=== PATIENT | female | born 1980 | race Caucasian/White ===

== ENCOUNTER 2017-02-24 09:26 | Emergency (ER) | payer OTHER ==
--- NOTE | 2017-02-24 10:53 | DIAGNOSTIC IMAGING REPORT ---
PROCEDURE: CT HEAD WITHOUT CONTRAST INDICATION: HEADACHE FAM HX OF BRAIN TUMOR TECHNIQUE: Axial CT images were acquired through the head. Coronal and sagittal reformations were created. COMPARISON: None. FINDINGS: No intracranial hemorrhage or extraaxial fluid collections. Ventricles are normal in size, shape and position. There is no mass, mass effect or midline shift. The lara-white matter differentiation is normal. There is no edema. The calvarium is intact. The paranasal sinuses and mastoid air cells are normally aerated. The extracranial soft tissues and orbits are normal. IMPRESSION: 1. No CT evidence of acute intracranial process. 2. Findings discussed with Dr. Kuo at [address] scans at this facility use dose modulation, iterative reconstruction, and/or weight-based dosing when appropriate to reduce radiation dose to as low as reasonably achievable.
--- NOTE | 2017-02-24 12:04 | ED CLINICAL REPORT ---
Clinical Report - Physicians/Mid Levels [facility] [address] [place] [address] 02/24/2017 9:31 Patient: SONIA HARRIS I Time Seen: 0945. Arrived- By private vehicle. Historian- patient. HISTORY OF PRESENT ILLNESS Chief Complaint: HEADACHE. Is still present but is improving. This started today 0600. It was gradual in onset and has been constant but is not gone now. Onset during gardening. It is described as sharp. Quality described as unlike previous headaches. Located in the frontal region. No neck pain. Not located in the facial region. At its maximum, severity described as severe. When seen in the E.D., severity described as mild. The patient has had nausea. No photophobia, numbness, weakness or vomiting. (maximum intensity of headache occurred approximately 1-1/2 hours after onset.). No recent travel. Similar symptoms previously: None. Recent medical care: Not recently seen/assessed. REVIEW OF SYSTEMS No fever or skin rash. All systems otherwise negative, except as recorded above. PAST HISTORY See nurses notes. Medications: None. Allergies: No Known Drug Allergy. SOCIAL HISTORY Never smoker. No alcohol use or drug use. Is a local resident. FAMILY HISTORY History of migraine headaches (sister). sister also with hx of what patient describes as a pituitary tumor. ADDITIONAL NOTES The nursing notes have been reviewed. PHYSICAL EXAM Vital Signs: 02/24/2017 09:40 BP: 135/54. HR: 108. RR: 18. O2 saturation: 99%. Temp: 97.7 F. Pain level now: 6/10. Oxygen saturation normal. Appearance: Alert. No acute distress. Eyes: Pupils equal, round and reactive to light. Eyes normal inspection. (no papilledema. Normal appearing retinal vasculature.). ENT: Ears normal. Nose normal. Pharynx normal. Neck: Normal inspection. Neck supple. No meningeal signs. CVS: Normal heart rate and rhythm. Heart sounds normal. Pulses normal. Respiratory: No respiratory distress. Breath sounds normal. Abdomen: Soft and nontender. No organomegaly. Skin: Skin warm and dry. Normal skin color. No rash. Normal skin turgor. Extremities: Extremities exhibit normal ROM. No lower extremity edema. Neuro: Oriented X 3. Alert. Mood/affect normal. Speech normal. No dysphasia or dysarthria. Cranial nerves normal (as tested). No cerebellar findings. No abnormal finger-nose test. No motor deficit. No sensory deficit. No sensory deficit. Reflexes normal. LABS, X-RAYS, AND EKG CT Head: (PROCEDURE: CT HEAD WITHOUT CONTRAST INDICATION: HEADACHE FAM HX OF BRAIN TUMOR TECHNIQUE: Axial CT images were acquired through the head. Coronal and sagittal reformations were created. COMPARISON: None. FINDINGS: No intracranial hemorrhage or extraaxial fluid collections. Ventricles are normal in size, shape and position. There is no mass, mass effect or midline shift. The lara-white matter differentiation is normal. There is no edema. The calvarium is intact. The paranasal sinuses and mastoid air cells are normally aerated. The extracranial soft tissues and orbits are normal. IMPRESSION: 1. No CT evidence of acute intracranial process.). The study was independently viewed by me and interpreted by the radiologist. The study was discussed with the radiologist (via phone and pacs). PROGRESS AND PROCEDURES Course of Care: The patient is a 36-year-old female no pertinent past medical history presenting for evaluation of headache. Patient with family history of pituitary adenoma. Patient states that her sister was diagnosed with a pituitary adenoma at the age of 31. Patient's symptoms are not consistent with a subarachnoid hemorrhage. Patient is at low risk of subarachnoid hemorrhage. Patient's pretest probability is low. The patient will be evaluated with CT scan of the head because of the patient's family history of pituitary adenoma. With a normal CT scan also within 6 hours of patient's onset of headache, patient would be at further lower her risk ofhaving a subarachnoid hemorrhage and would be at extremely low risk for having one at this time. At this time there is no concern for increased intracranial pressure, meningitis, or mass effect. the patient's workup was remarkable for the findings above. Patient's symptoms had resolved prior to discharge from the emergency department. Patient is updated on the results of her workup here in emergency department including diagnosis, home care, follow-up, and return precautions. All questions have been answered. The patient expressed understanding of these instructions and was agreeable to them. Disposition: Discharged. Condition: good. CLINICAL IMPRESSION 02/24/2017 11:20 BP: 125/72. HR: 48. RR: 16. O2 saturation: 100%. Pain level now: 09/11. Moderate nausea. Acute headache (frontal). Blood pressure normal. Oxygen saturation normal. INSTRUCTIONS Warnings: GENERAL WARNINGS: Return or contact your physician immediately if your condition worsens or changes unexpectedly, if not improving as expected, or if other problems arise. SPECIFICALLY, return if you develop fever, vomiting, numbness, weakness, difficulty thinking, visual disturbances, fainting or extreme fatigue. Your Current Medications: CONTINUE TAKING THE FOLLOWING MEDICATIONS: None*. Prescription Medications: Zofran (orally disintegrating tablets) 4 mg: take 1 orally every 8 hours as needed for nausea and vomiting. Dispense ten (10). No refill. Substitution is permissible. Follow-up: Return to the emergency department as needed. Follow up with your doctor in three days. Reason for referral: recheck today's concerns. Summary of care provided to patient via paper. Screening today revealed the patient's blood pressure to be in the normal range. The patient should follow up with a primary care provider for blood pressure management. Understanding of the discharge instructions verbalized by patient. (Electronically signed by Germain Kuo Dr. 02/24/2017 12:37)
--- NOTE | 2017-02-24 12:04 | ED NURSING NOTES ---
Clinical Report - Nurses [facility] [address] [place] [address] 02/24/2017 9:31 Patient: SONIA HARRIS I TRIAGE Triage time 0940. Chief Complaint: HEADACHE and BLURRED VISION and DIZZINESS (nausea, headache pain was 10/10 at first). Alert. SEPSIS SCREEN: Sepsis Screen. Negative (no infection suspected/documented). --09:47 Peggy Michelle R.N. 09:40 02/24/17. BP: 135/54. HR: 108. RR: 18. O2 saturation: 99%. Temp: 97.7 F. Pain level now: 610. --09:47 Peggy Michelle R.N. Weight: 53.5 kg stated. Height/Length: 62 inches Per Patient. BMI: 21.6. --09:45 Peggy Michelle R.N. Medications None. --09:43 Peggy Michelle R.N. Allergies No Known Drug Allergy. --09:43 Peggy Michelle R.N. History Arrived by private vehicle. Historian: patient. Accompanied by family. Primary physician (Owen). This started today at 0630. PAST MEDICAL HX: Denies current . SOCIAL HX: Former smoker, end date 2006. Occasional alcohol use. No drug use. The patient was not exposed to MRSA. ABUSE ASSESSMENT: Abuse assessment: ("YES") The patient was asked "Do you feel safe in your home?". --09:47 Peggy Michelle R.N. ADDITIONAL SURGERIES: Lasik. Tubal Ligation. --09:45 Peggy Michelle R.N. Interventions ID band on patient. To room. --09:47 Peggy Michelle R.N. PHYSICAL ASSESSMENT 09:47 02/24/17. GENERAL / NEURO / PSYCH: Alert. Oriented X 4. Speech within normal limits. --09:47 Peggy Michelle R.N. NURSING PROGRESS NOTES 09:47 06/25/17. Patient identifiers checked. Call light placed in reach. Bed placed in lowest position. Patient ready for evaluation- chart flagged. --09:47 Peggy Michelle R.N. 10:30. Care transferred and report given (to JOSEPH Lynn). --10:36 Peggy Michelle R.N. 10:20 02/24/2017 Site #1 started via IV in the right antecubital space with an 20g angiocath, with aseptic technique and good blood return; one attempt. Blood drawn: rainbow set. Labeled in the presence of the patient and sent to the lab. --10:49 Leah Mason R.N. 10:35 02/24/2017 Started bag #1 1000 mL IV Fluids IV NS (Saline); at 1000 mL/hr over 1 hour(s) via site #1 via IV pump. --10:50 Leah Mason R.N. 10:42 02/24/2017 PHENERGAN (Promethazine HCl) IVP 25 mg given over 1 minute(s) via site #1. IV patency established. IV site checked: no pain, redness, or swelling. IV flushed thoroughly pre- and post-medication administration. IVP given by RN. --10:50 Leah Mason R.N. 10:43 02/24/2017 Benadryl (DiphenhydrAMINE HCl) IVP 25 mg given over 1 minute(s) via site #1. IV patency established. IV site checked: no pain, redness, or swelling. IV flushed thoroughly pre- and post-medication administration. IVP given by RN. --10:51 Leah Mason R.N. 10:44 02/24/2017 Toradol IVP 30 mg given over 1 minute(s) via site #1. IV patency established. IV site checked: no pain, redness, or swelling. IV flushed thoroughly pre- and post-medication administration. IVP given by RN. --10:51 Leah Mason R.N. 10:46 02/24/2017 Decadron IVP 10 mg given over 2 minute(s) via site #1. IV patency established. IV site checked: no pain, redness, or swelling. IV flushed thoroughly pre- and post-medication administration. IVP given by RN. --10:51 Leah Masno R.N. late entry -10:20 First contact with pt. IV started and bloods to lab. --10:52 Leah Mason R.N. 10:26. Patient transported to [place] by stretcher with tech. --10:52 Leah Mason R.N. 10:35. Patient returned from CT by stretcher with tech. --10:53 Leah Mason R.N. 10:40 02/24/17. BP: 116/74. HR: 79. RR: 18. O2 saturation: 100%. Temp: deferred. Pain level now: 12/10. --10:53 Leah Mason R.N. 11:20 02/24/17. BP: 125/72. HR: 48. RR: 16. O2 saturation: 100%. Temp: deferred. Pain level now: 09/11. --11:24 Leah Mason R.N. 11:54 02/24/2017 IV Fluids IV NS Discontinued: bag #1 infused. Total amount infused: 1000 mL. IV patency established. IV site checked: no pain, redness, or swelling. IV flushed thoroughly. --12:04 Kirstin Prieto R.N. 12:00 02/24/2017 Site #1 removed upon discharge. Bandaid applied. --12:17 Leah Mason R.N. 12:00 pt denies pain or nausea. sleeping when not disturbed. --12:18 Leah Mason R.N. DISPOSITION / DISCHARGE 12:10. Condition at departure: improved and stable. No learning barriers present. Discharge instructions provided and reviewed with the patient and spouse. Reviewed medication(s) (zofran). Treatments reviewed (fluids, rest). Patient and spouse verbalized understanding. Written instructions provided in [employer]. The patient was discharged home and accompanied by spouse. She left the Emergency Department ambulatory and via private vehicle. Spouse driving. --12:16 Leah Mason R.N. 12:10 02/24/17. BP: 105/64. HR: 54. RR: 16. O2 saturation: 96%. Temp: deferred. Pain level now: 0/10. --12:16 Leah Mason R.N. Locked/Released at 02/24/2017 12:19 by Leah Mason R.N.
--- NOTE | 2017-02-24 12:05 | ED ORDER SUMMARY ---
..... Patient: SONIA HARRIS I OrderSheet [facility] VisitID: [id number] [address] [place] [address] 36y, F Registration Date/Time: 02/24/2017 ORDER SHEET Weight: 53.5 kg (stated) Allergies: No Known Drug Allergy GENERAL ORDERS: CT Head wo Cont Urgent (10:02/24/2017 Suzan Gomes) (Ack 10:07 Kelechi) (10:52 DDean R.N.) Pulse oximeter (10:02/24/2017 Suzan Gomes) (10:52 DDean R.N.) MEDICATION ORDERS: Phenergan IV 25 mg (HIGH ALERT MEDICATION, NOW) (10:02/24/2017 Suzan Gomes) (10:50 DDean R.N.) IV FLUIDS: IV NS : initial bolus 1000 mL (1000 mL/hr), then none - for X1 (NOW) (10:02/24/2017 Suzan Gomes) (10:50 DDean R.N.) Benadryl IV 25 mg (NOW) (10:02/24/2017 Suzan Gomes) (10:51 DDean R.N.) Toradol IV 30 mg (NOW) (10:02/24/2017 Suzan Gomes) (10:51 DDean R.N.) Decadron IV 10 mg (NOW) (10:02/24/2017 Suzan Gomes) (10:51 DDean R.N.) ORDER SHEET NOTES: [Electronically signed by Leah Mason R.N. (12:19 02/24/2017)] [Electronically signed by Germain Kuo Dr. (12:37 02/24/2017)] [Electronically locked/signed by Leah Mason R.N. (12:19 02/24/2017)]
--- NOTE | 2017-02-24 12:05 | ED ORDER SUMMARY ---
..... Patient: SONIA HARRIS I OrderSheet [facility] VisitID: [id number] [address] [place] [address] 36y, F Registration Date/Time: 02/24/2017 ORDER SHEET Weight: 53.5 kg (stated) Allergies: No Known Drug Allergy GENERAL ORDERS: CT Head wo Cont Urgent (10:02/24/2017 Suzan Gomes) (Ack 10:07 Kelechi) (10:52 DDean R.N.) Pulse oximeter (10:02/24/2017 Suzan Gomes) (10:52 DDean R.N.) MEDICATION ORDERS: Phenergan IV 25 mg (HIGH ALERT MEDICATION, NOW) (10:02/24/2017 Suzan Gomes) (10:50 DDean R.N.) IV FLUIDS: IV NS : initial bolus 1000 mL (1000 mL/hr), then none - for X1 (NOW) (10:02/24/2017 Suzan Gomes) (10:50 DDean R.N.) Benadryl IV 25 mg (NOW) (10:02/24/2017 Suzan Gomes) (10:51 DDean R.N.) Toradol IV 30 mg (NOW) (10:02/24/2017 Suzan Gomes) (10:51 DDean R.N.) Decadron IV 10 mg (NOW) (10:02/24/2017 Suzan Gomes) (10:51 DDean R.N.) ORDER SHEET NOTES: [Electronically signed by Leah Mason R.N. (12:19 02/24/2017)] [Electronically signed by Germain Kuo Dr. (12:37 02/24/2017)] [Electronically locked/signed by Leah Mason R.N. (12:19 02/24/2017)]
--- NOTE | 2017-02-24 12:38 | ED DISCHARGE INSTRUCTIONS ---
Patient: SONIA HARRIS I General Instructions [facility] VisitID: [id number] [place] [address] 36y, F Registration Date/Time: 02/24/2017 02/24/2017 11:20 BP: 125/72. HR: 48. RR: 16. O2 saturation: 100%. Pain level now: 10. Moderate nausea. Acute headache (frontal). Blood pressure normal. Oxygen saturation normal. INSTRUCTIONS Warnings: GENERAL WARNINGS: Return or contact your physician immediately if your condition worsens or changes unexpectedly, if not improving as expected, or if other problems arise. SPECIFICALLY, return if you develop fever, vomiting, numbness, weakness, difficulty thinking, visual disturbances, fainting or extreme fatigue. Your Current Medications: CONTINUE TAKING THE FOLLOWING MEDICATIONS: None*. Prescription Medications: Zofran (orally disintegrating tablets) 4 mg: take 1 orally every 8 hours as needed for nausea and vomiting. Dispense ten (10). No refill. Substitution is permissible. Follow-up: Return to the emergency department as needed. Follow up with your doctor in three days. Reason for referral: recheck today's concerns. Summary of care provided to patient via paper. Screening today revealed the patient's blood pressure to be in the normal range. The patient should follow up with a primary care provider for blood pressure management. Understanding of the discharge instructions verbalized by patient. ADDITIONAL INFORMATION Headache [Unspecified] The cause of your headache today is not clear, but it does not appear to be the sign of any serious illness. Under stress, some people tense the muscles of their shoulder, neck and scalp without knowing it. If this condition lasts long enough, a TENSION HEADACHE can occur. A MIGRAINE HEADACHE is caused by changes in blood flow to the brain. A migraine attack may be triggered by emotional stress, hormone changes during the menstrual cycle, oral contraceptives, alcohol use, certain foods containing tyramine, eye strain, weather changes, missing meals, lack of sleep or oversleeping. Other causes of headache include a viral illness with high fever, head injury with concussion, sinus, ear or throat infection, dental pain and TMJ (jaw joint) pain. More serious but less common causes of headache include stroke, brain hemorrhage, brain tumor, meningitis and encephalitis. Home Care: If you were given pain medicine for this headache, do not drive yourself home. Arrange for a ride, instead. When you get home, try to sleep. You should feel much better when you wake up. Apply heat to the back of your neck to relieve neck muscle spasm. Migraine headaches may respond best to an ice pack on the forehead or at the base of the skull. If you are having nausea or vomiting, follow a light diet until your headache is relieved. If you have a migraine type headache, use sunglasses when in the daylight or around bright indoor lighting until symptoms improve. Bright glaring light can worsen this kind of headache. Follow Up with your doctor if the headache is not better within the next 24 hours. If you have frequent headaches you should discuss a treatment plan with your primary care doctor. By being aware of the earliest signs of headache, and starting treatment right away, you may be able to stop the pain yourself. Get Prompt Medical Attention if any of the following occur: Worsening of your head pain or no improvement within 24 hours Repeated vomiting (unable to keep liquids down) Fever of 100.4F (38C) or higher, or as directed by your healthcare provider Stiff neck Extreme drowsiness, confusion or fainting Dizziness, vertigo (dizziness with spinning sensation) Weakness of an arm or leg or one side of the face Difficulty with speech or vision Ondansetron Oral disintegrating tablet What is this medicine? ONDANSETRON (on ANSHUL se rashawn) is used to treat nausea and vomiting caused by chemotherapy. It is also used to prevent or treat nausea and vomiting after surgery. How should I use this medicine? These tablets are made to dissolve in the mouth. Do not try to push the tablet through the foil backing. With dry hands, peel away the foil backing and gently remove the tablet. Place the tablet in the mouth and allow it to dissolve, then swallow. While you may take these tablets with water, it is not necessary to do so. Talk to your machine deicer element winder regarding the use of this medicine in children. Special care may be needed. What side effects may I notice from receiving this medicine? Side effects that you should report to your doctor or health certified caregiver as soon as possible: allergic reactions like skin rash, itching or hives, swelling of the face, lips, or tongue breathing problems dizziness fast or irregular heartbeat feeling faint or lightheaded, falls fever and chills swelling of the hands and feet tightness in the chest Side effects that usually do not require medical attention (report to your doctor or health certified caregiver if they continue or are bothersome): constipation or diarrhea headache What may interact with this medicine? Do not take this medicine with any of the following medications: -apomorphine -cisapride -dofetilide -dronedarone -pimozide -thioridazine -ziprasidone This medicine may also interact with the following medications: -carbamazepine -phenytoin -rifampicin -tramadol -other medicines that prolong the QT interval (cause an abnormal heart rhythm) What if I miss a dose? If you miss a dose, take it as soon as you can. If it is almost time for your next dose, take only that dose. Do not take double or extra doses. Where should I keep my medicine? Keep out of the reach of children. Store between 2 and 30 degrees C (36 and 86 degrees F). Throw away any unused medicine after the expiration date. What should I tell my health care provider before I take this medicine? They need to know if you have any of these conditions: heart disease history of irregular heartbeat liver disease low levels of magnesium or potassium in the blood an unusual or allergic reaction to ondansetron, granisetron, other medicines, foods, dyes, or preservatives or trying to get breast-feeding What should I watch for while using this medicine? Check with your doctor or health certified caregiver as soon as you can if you have any sign of an allergic reaction. You have been given the following additional information: Headache, Unspecified Ondansetron Oral disintegrating tablet (Electronically signed by Germain Kuo Dr. 02/24/2017 12:37)
--- NOTE | 2017-02-24 12:38 | ED MAR SUMMARY ---
..... Medication Administration Record [facility] [address] [place] [address] Patient: SONIA HARRIS I Visit ID: [id number] 36y, F Weight: 53.5 kg Height/Length: 62 in BMI: 21.6 ALLERGIES: No Known Drug Allergy Start 10:35 02/24/2017 Leah Mason R.N., Stop 11:54 02/24/2017 Kristin Prieto R.N. Medication Administered: IV NS (SALINE), Dose: IV Fluids over 1 hour(s), Rate: 1000 mL/hr, Dispensed: 1000 mL bag, Site: #1 right AC. Medication Ordered: IV NS : initial bolus 1000 mL (1000 mL/hr), then none - for X1 (NOW). Given 10:42 02/24/2017 Leah Mason R.N. Medication Administered: PHENERGAN [IVP] (PROMETHAZINE HCL), Dose: 25 mg IVP over 1 minute(s), Site: #1 right AC. Medication Ordered: Phenergan IV 25 mg (HIGH ALERT MEDICATION, NOW). Given 10:43 02/24/2017 Leah Mason R.N. Medication Administered: BENADRYL [IVP] (DIPHENHYDRAMINE HCL), Dose: 25 mg IVP over 1 minute(s), Site: #1 right AC. Medication Ordered: Benadryl IV 25 mg (NOW). Given 10:44 02/24/2017 Leah Mason R.N. Medication Administered: TORADOL [IVP], Dose: 30 mg IVP over 1 minute(s), Site: #1 right AC. Medication Ordered: Toradol IV 30 mg (NOW). Given 10:46 02/24/2017 Leah Mason R.N. Medication Administered: DECADRON [IVP], Dose: 10 mg IVP over 2 minute(s), Site: #1 right AC. Medication Ordered: Decadron IV 10 mg (NOW).
--- NOTE | 2017-02-24 12:38 | ED DISCHARGE INSTRUCTIONS ---
Patient: SONAI HARRIS I General Instructions Merged With [facility] VisitID: [id number] [place] [address] 36y, F Registration Date/Time: 02/24/2017 02/24/2017 11:20 BP: 125/72. HR: 48. RR: 16. O2 saturation: 100%. Pain level now: 10. Moderate nausea. Acute headache (frontal). Blood pressure normal. Oxygen saturation normal. INSTRUCTIONS Warnings: GENERAL WARNINGS: Return or contact your physician immediately if your condition worsens or changes unexpectedly, if not improving as expected, or if other problems arise. SPECIFICALLY, return if you develop fever, vomiting, numbness, weakness, difficulty thinking, visual disturbances, fainting or extreme fatigue. Your Current Medications: CONTINUE TAKING THE FOLLOWING MEDICATIONS: None*. Prescription Medications: Zofran (orally disintegrating tablets) 4 mg: take 1 orally every 8 hours as needed for nausea and vomiting. Dispense ten (10). No refill. Substitution is permissible. Follow-up: Return to the emergency department as needed. Follow up with your doctor in three days. Reason for referral: recheck today's concerns. Summary of care provided to patient via paper. Screening today revealed the patient's blood pressure to be in the normal range. The patient should follow up with a primary care provider for blood pressure management. Understanding of the discharge instructions verbalized by patient. ADDITIONAL INFORMATION Headache [Unspecified] The cause of your headache today is not clear, but it does not appear to be the sign of any serious illness. Under stress, some people tense the muscles of their shoulder, neck and scalp without knowing it. If this condition lasts long enough, a TENSION HEADACHE can occur. A MIGRAINE HEADACHE is caused by changes in blood flow to the brain. A migraine attack may be triggered by emotional stress, hormone changes during the menstrual cycle, oral contraceptives, alcohol use, certain foods containing tyramine, eye strain, weather changes, missing meals, lack of sleep or oversleeping. Other causes of headache include a viral illness with high fever, head injury with concussion, sinus, ear or throat infection, dental pain and TMJ (jaw joint) pain. More serious but less common causes of headache include stroke, brain hemorrhage, brain tumor, meningitis and encephalitis. Home Care: If you were given pain medicine for this headache, do not drive yourself home. Arrange for a ride, instead. When you get home, try to sleep. You should feel much better when you wake up. Apply heat to the back of your neck to relieve neck muscle spasm. Migraine headaches may respond best to an ice pack on the forehead or at the base of the skull. If you are having nausea or vomiting, follow a light diet until your headache is relieved. If you have a migraine type headache, use sunglasses when in the daylight or around bright indoor lighting until symptoms improve. Bright glaring light can worsen this kind of headache. Follow Up with your doctor if the headache is not better within the next 24 hours. If you have frequent headaches you should discuss a treatment plan with your primary care doctor. By being aware of the earliest signs of headache, and starting treatment right away, you may be able to stop the pain yourself. Get Prompt Medical Attention if any of the following occur: Worsening of your head pain or no improvement within 24 hours Repeated vomiting (unable to keep liquids down) Fever of 100.4F (38C) or higher, or as directed by your healthcare provider Stiff neck Extreme drowsiness, confusion or fainting Dizziness, vertigo (dizziness with spinning sensation) Weakness of an arm or leg or one side of the face Difficulty with speech or vision Ondansetron Oral disintegrating tablet What is this medicine? ONDANSETRON (on ANSHUL se rashawn) is used to treat nausea and vomiting caused by chemotherapy. It is also used to prevent or treat nausea and vomiting after surgery. How should I use this medicine? These tablets are made to dissolve in the mouth. Do not try to push the tablet through the foil backing. With dry hands, peel away the foil backing and gently remove the tablet. Place the tablet in the mouth and allow it to dissolve, then swallow. While you may take these tablets with water, it is not necessary to do so. Talk to your community development manager regarding the use of this medicine in children. Special care may be needed. What side effects may I notice from receiving this medicine? Side effects that you should report to your doctor or health campground caretaker as soon as possible: allergic reactions like skin rash, itching or hives, swelling of the face, lips, or tongue breathing problems dizziness fast or irregular heartbeat feeling faint or lightheaded, falls fever and chills swelling of the hands and feet tightness in the chest Side effects that usually do not require medical attention (report to your doctor or health campground caretaker if they continue or are bothersome): constipation or diarrhea headache What may interact with this medicine? Do not take this medicine with any of the following medications: -apomorphine -cisapride -dofetilide -dronedarone -pimozide -thioridazine -ziprasidone This medicine may also interact with the following medications: -carbamazepine -phenytoin -rifampicin -tramadol -other medicines that prolong the QT interval (cause an abnormal heart rhythm) What if I miss a dose? If you miss a dose, take it as soon as you can. If it is almost time for your next dose, take only that dose. Do not take double or extra doses. Where should I keep my medicine? Keep out of the reach of children. Store between 2 and 30 degrees C (36 and 86 degrees F). Throw away any unused medicine after the expiration date. What should I tell my health care provider before I take this medicine? They need to know if you have any of these conditions: heart disease history of irregular heartbeat liver disease low levels of magnesium or potassium in the blood an unusual or allergic reaction to ondansetron, granisetron, other medicines, foods, dyes, or preservatives or trying to get breast-feeding What should I watch for while using this medicine? Check with your doctor or health campground caretaker as soon as you can if you have any sign of an allergic reaction. You have been given the following additional information: Headache, Unspecified Ondansetron Oral disintegrating tablet (Electronically signed by Germain Kuo Dr. 02/24/2017 12:37)
--- NOTE | 2017-02-24 12:38 | ED MAR SUMMARY ---
..... Medication Administration Record [facility] [address] [place] [address] Patient: SONIA HARRIS I Visit ID: [id number] 36y, F Weight: 53.5 kg Height/Length: 62 in BMI: 21.6 ALLERGIES: No Known Drug Allergy Start 10:35 02/24/2017 Leah Mason R.N., Stop 11:54 02/24/2017 Kristin Prieto R.N. Medication Administered: IV NS (SALINE), Dose: IV Fluids over 1 hour(s), Rate: 1000 mL/hr, Dispensed: 1000 mL bag, Site: #1 right AC. Medication Ordered: IV NS : initial bolus 1000 mL (1000 mL/hr), then none - for X1 (NOW). Given 10:42 02/24/2017 Leah Mason R.N. Medication Administered: PHENERGAN [IVP] (PROMETHAZINE HCL), Dose: 25 mg IVP over 1 minute(s), Site: #1 right AC. Medication Ordered: Phenergan IV 25 mg (HIGH ALERT MEDICATION, NOW). Given 10:43 02/24/2017 Leah Mason R.N. Medication Administered: BENADRYL [IVP] (DIPHENHYDRAMINE HCL), Dose: 25 mg IVP over 1 minute(s), Site: #1 right AC. Medication Ordered: Benadryl IV 25 mg (NOW). Given 10:44 02/24/2017 Leah Mason R.N. Medication Administered: TORADOL [IVP], Dose: 30 mg IVP over 1 minute(s), Site: #1 right AC. Medication Ordered: Toradol IV 30 mg (NOW). Given 10:46 02/24/2017 Leah Mason R.N. Medication Administered: DECADRON [IVP], Dose: 10 mg IVP over 2 minute(s), Site: #1 right AC. Medication Ordered: Decadron IV 10 mg (NOW).
--- NOTE | 2017-02-24 12:38 | ED MED RECONCILIATION SUMMARY ---
Patient: SONIA HARRIS I Medication Reconciliation Report [facility] VisitID: [id number] [address] [place] [address] 36y, F Registration Date/Time: 02/24/2017 Weight: 53.5 kg Height/Length: 62 in. BMI: 21.6 ALLERGIES: No Known Drug Allergy The patient's Home Medications are listed below: NONE. The source(s) of the original Home Medication information: Not obtained. The following Medications were given to the patient in the Emergency Department: IV NS IV Fluids bolus 0, then 1000 mL/hr, administered: 02/24/2017 10:35:00 AM PHENERGAN [IVP] IVP 25 mg, administered: 02/24/2017 10:42:00 AM Benadryl [IVP] IVP 25 mg, administered: 02/24/2017 10:43:00 AM Toradol [IVP] IVP 30 mg, administered: 02/24/2017 10:44:00 AM Decadron [IVP] IVP 10 mg, administered: 02/24/2017 10:46:00 AM The following Medications were prescribed to the patient: Zofran (orally disintegrating tablets) 4 mg: take 1 orally every 8 hours as needed for nausea and vomiting. Dispense ten (10). No refill. Substitution is permissible. -- Germain Kuo Dr.
--- NOTE | 2017-02-24 12:38 | ED MED RECONCILIATION SUMMARY ---
Patient: SONIA HARRIS I Medication Reconciliation Report [facility] VisitID: [id number] [address] [place] [address] 36y, F Registration Date/Time: 02/24/2017 Weight: 53.5 kg Height/Length: 62 in. BMI: 21.6 ALLERGIES: No Known Drug Allergy The patient's Home Medications are listed below: NONE. The source(s) of the original Home Medication information: Not obtained. The following Medications were given to the patient in the Emergency Department: IV NS IV Fluids bolus 0, then 1000 mL/hr, administered: 02/24/2017 10:35:00 AM PHENERGAN [IVP] IVP 25 mg, administered: 02/24/2017 10:42:00 AM Benadryl [IVP] IVP 25 mg, administered: 02/24/2017 10:43:00 AM Toradol [IVP] IVP 30 mg, administered: 02/24/2017 10:44:00 AM Decadron [IVP] IVP 10 mg, administered: 02/24/2017 10:46:00 AM The following Medications were prescribed to the patient: Zofran (orally disintegrating tablets) 4 mg: take 1 orally every 8 hours as needed for nausea and vomiting. Dispense ten (10). No refill. Substitution is permissible. -- Germain Kuo Dr.
== END 2017-02-24 12:10 | disposition home or self-care (01) ==
LOC: ED SRH 09:26
DX: R51 Headache (principal); R11.0 Nausea